=== PATIENT | female | born 1985 | race Caucasian/White ===

== ENCOUNTER 2017-03-24 12:16 | Emergency (ER) | payer BC ==
[~2017-03-24] VITALS: Ht 165.1 cm; Wt 89.4 kg
[2017-03-24 13:29] LABS: HEMATOCRIT 37.1 % (36.0-46.0); MCH 29.4 PG (29.0-34.0); MCHC 34.5 G/DL (30.0-36.0); MCV 85.3 FL (83-99); MEAN PLAT.VOLUME 11.6 uM^3 (9.5-12.4); PLATELET COUNT 174 K/uL (156-360); RBC DIS.WIDTH-CV 13.2 % (11.8-14.6); RBC DIS.WIDTH-SD 40.2 % (39-53); RED BLOOD COUNT 4.35 M/uL (3.80-5.20); WHITE BLOOD COUNT 11.5 K/uL (4.1-10.2)
[2017-03-24 13:42] LABS: CHLORIDE 107 mEq/L (99-109); POTASSIUM 5.2 mEq/L (3.7-5.4); SODIUM 138 mEq/L (136-147)
[2017-03-24 13:45] LABS: GLUCOSE 80 mg/dL (70-99)
[2017-03-24 13:46] LABS: ANION GAP 11 MEQ/L (2-14)
[2017-03-24 13:47] LABS: TOTAL BILIRUBIN 0.5 mg/dL (0.0-1.0)
[2017-03-24 13:48] LABS: ALKALINE PHOSPHATASE 77 IU/L (3-129); GFR ESTIMATE (CALCULATED) > 59 mL/min/
[2017-03-24 13:49] LABS: UREA NITROGEN (BUN) 15 mg/dL (9-23)
[2017-03-24 13:52] LABS: LIPASE 26 U/L (1.0-51.0)
[2017-03-24 13:57] LABS: QUANTITATIVE HCG < 4.0 MIU/ML
[2017-03-24 13:57] LABS: ADD MIUA? YES; BILIRUBIN NEGATIVE; BLOOD LARGE; COLOR YELLOW ((YELLOW)); GLUCOSE (STRIP) NEGATIVE; KETONES 20; LEUKOCYTES NEGATIVE; NITRITE NEGATIVE; PROTEIN (STRIP) 30; SPECIFIC GRAVITY 1.025 (1.000-1.030); UROBILINOGEN 0.2 MG/DL (0.2-1.0)
[2017-03-24 14:01] LABS: BACTERIA RARE /HPF; EPITHELIAL CELLS RARE /HPF; MUCUS 3+ /LPF; RED BLOOD CELLS 15-20 /HPF (0-5); WHITE BLOOD CELLS 0-5 /HPF (0-5)
[2017-03-24] MEDS ORDERED: ZOFRAN ODT4 MG PO (14:39)
[2017-03-24] MEDS ORDERED: BENTYL10 MG PO (14:39)
[2017-03-24 14:47] VITALS: BP 117/67
== END 2017-03-24 14:47 | disposition home or self-care (01) ==
LOC: EME 12:16
PROVIDERS: Nurse Practitioner Family
DX: R10.30 Lower abdominal pain, unspecified (principal); N94.6 Dysmenorrhea, unspecified; R11.2 Nausea with vomiting, unspecified; E86.0 Dehydration; R42 Dizziness and giddiness; K76.0 Fatty (change of) liver, not elsewhere classified; Z87.891 Personal history of nicotine dependence
CPT/HCPCS: 74177; 80053; 81003; 83690; 84702; 85027; 99281; 99284; J1885; J2405; J7030